=== PATIENT | male | born 1960 | race Caucasian/White ===

== ENCOUNTER 2016-08-17 20:19 | Observation (INO) ==
[2016-08-17] MEDS ORDERED: Aspirin 325 MG TABLET PO ONE (20:28)
--- NOTE | 2016-08-17 20:30 | Emergency Department Note ---
Disposition Clinical Impression: Chest pain, Alcohol abuse Disposition: Admitted As Inpatient Condition: Good Referrals: Marcelo Thomas MD [Primary Care Provider] - Time of Disposition: 21:26 Chest Pain HPI - General Chief Complaint: ED Chest Pain Stated Complaint: chest pain Time Seen by Provider: 08/17/16 20:22 Source: patient Mode of arrival: ambulatory Limitations: no limitations Vital Signs Reviewed: Yes Nursing Notes Reviewed: Yes - History of Present Illness HPI Narrative: This is a 56-year-old male who presents with 3-4 hours of chest pain on the right side that the aching in quality. Patient states the pain is nonradiating. Patient states he does have pain upon inspiration. Patient denies any nausea, abdominal pain, vomiting, or diarrhea. Patient has never had a heart cath or cardiac stents placed. Patient states he does have COPD but he does not wear oxygen at home. Pt complaint: chest pain Onset (ago): hour(s) (3-4) Duration: constant - Related Data Home Medications Medication Instructions Recorded Confirmed Alprazolam [Xanax 1 MG Tablet] 1 mg PO QID 08/17/16 08/17/16 Amlodipine Besylate 10 mg PO DAILY 08/17/16 08/17/16 Aspirin 81 mg PO DAILY 08/17/16 08/17/16 Citalopram Hydrobromide [Celexa] 40 mg PO DAILY 08/17/16 08/17/16 Gabapentin [Neurontin] 300 mg PO HS 08/17/16 08/17/16 OLANZapine [Zyprexa] 15 mg PO HS 08/17/16 08/17/16 Oxycodone HCl/Acetaminophen 1 each PO TID PRN 08/17/16 08/17/16 [Percocet 10-325 mg Tablet] Trazodone HCl 300 mg PO HS 08/17/16 08/17/16 Allergies Allergy/AdvReac Type Severity Reaction Status Date / Time No Known Allergies Allergy Verified 08/17/16 20:57 All systems ED: reviewed and negative except as stated. Constitutional: Denies: fever, chills, weakness, weight change Eyes: Denies: eye pain, eye discharge, vision change ENT ED: Denies: ear pain, throat pain, dental pain, hearing loss, epistaxis, congestion, dysphagia Cardiovascular: Reports: chest pain. Denies: palpitations, dyspnea on exertion , edema, syncope Respiratory: Reports: dyspnea. Denies: cough, wheezes, hemoptysis, stridor Gastrointestinal: Denies: abdominal pain, nausea, vomiting, diarrhea, constipation, hematemesis, melena, hematochezia Genitourinary: Denies: urgency, dysuria, frequency, hematuria Musculoskeletal: Denies: back pain, neck pain, arthralgia, myalgia Integumentary: Denies: rash, abrasion, lesions Neurological: Denies: headache, weakness, numbness, paresthesias, confusion, abnormal gait, vertigo Psychiatric: Denies: anxiety, depression, suicidal thoughts, homicidal thoughts , auditory hallucinations, visual hallucinations Endocrine: Denies: fatigue Hematological/Lymphatic: Denies: easy bleeding, easy bruising Allergic/Immunologic: Denies: facial swelling, urticaria Physical Exam - General Limitations: no limitations General appearance: alert, in no apparent distress - Head Head exam: atraumatic, normocephalic, normal inspection - Eye Eye exam: Present: normal appearance, PERRL, EOMI - ENT ENT exam: normal exam, normal oropharynx, mucous membranes moist - Expanded ENT Exam External ear exam: Present: normal external inspection Mouth exam: Present: normal external inspection Teeth exam: Present: normal inspection Throat exam: Present: normal inspection - Neck Neck exam: Present: normal inspection, full ROM, trachea midline - Chest Chest inspection: Present: normal inspection, symmetric chest wall rise - Respiratory Respiratory exam: Present: normal lung sounds bilaterally - Cardiovascular Cardiovascular exam: Present: regular rate, normal rhythm, normal heart sounds - Abdominal Exam Abdominal exam: Present: soft, Non-Tender. Absent: tenderness, distention, guarding, rebound, rigidity - Extremities Exam Extremities exam: Present: normal inspection, full ROM. Absent: tenderness, pedal edema - Expanded Upper Extremity Exam Shoulder exam: Present: normal inspection, full ROM Arm exam: Present: normal inspection, full ROM Elbow exam: Present: normal inspection, full ROM Forearm/Wrist exam: Present: normal inspection, full ROM Hand exam: Present: normal inspection, full ROM Vascular exam: Normal: capillary refill, radial pulse - Expanded Lower Extremity Exam Hip/Pelvis exam: Present: normal inspection, full ROM Upper leg exam: Present: normal inspection, full ROM Knee exam: Present: normal inspection, full ROM Lower leg exam: Present: normal inspection, full ROM Ankle exam: Present: normal inspection, full ROM Foot/toe exam: Present: normal inspection, full ROM Neurovascular/Tendon exam: Absent: motor deficit, sensory deficit, tendon deficit - Back Exam Back exam: Present: normal inspection, full ROM. Absent: tenderness - Neurological Exam Neurological exam: Present: alert, oriented X3 - Expanded Neurological Exam Patient oriented to: Present: person, place, time Coma Scale Eye Opening: Spontaneous Coma Scale Motor Response: Obeys Commands Coma Scale Verbal Response: Oriented Coma Scale Total: 15 - Psychiatric Psychiatric exam: Present: normal mood, flat affect - Skin Skin exam: Present: warm, dry, intact, normal color Course - Consultations Consultation #1: I spoke with Dr. Darrin bowden to admit. Time: 21:44 Vital Signs Temperature 97.7 F 08/17/16 20:47 Pulse Rate 72 08/17/16 20:47 Respiratory Rate 18 08/17/16 20:47 Blood Pressure 169/95 08/17/16 20:47 O2 Sat by Pulse Oximetry 72 L 08/17/16 20:47 Temperature 97.7 F 08/17/16 20:47 Pulse Rate 73 08/17/16 21:22 Respiratory Rate 17 08/17/16 21:22 Blood Pressure 161/105 08/17/16 21:22 O2 Sat by Pulse Oximetry 100 08/17/16 21:22 Oxygen Delivery Oxygen Delivery Room Air Chest Pain - Medical Records Medical records reviewed: Yes I reviewed the patient's medical records. - Lab Data Lab results reviewed: Yes I reviewed the patient's lab results. Result diagrams: 08/17/16 20:35 08/17/16 20:35 Lab Results 08/17/16 08/17/16 08/17/16 Range/Units 20:35 20:35 20:35 WBC 6.4 (4.3-11.1) K/mcL RBC 3.86 L (4.19-5.50) M/mcL Hgb 12.4 L (12.9-16.9) g/dL Hct 36.7 L (37.5-50.1) % MCV 95.1 (83.0-100.0) fL MCH 32.1 (28.0-33.3) pg MCHC 33.8 (31.6-35.5) g/dL RDW 11.9 (11.5-14.5) % Plt Count 274 (140-400) K/mcL MPV 9.4 (9.4-12.4) fL Immature Gran % 0.3 (0-4) % Seg Neutrophils % 80.2 % Lymphocytes % 9.6 % Monocytes % 6.6 % Eosinophils % 2.2 % Basophils % 1.1 % Neutrophils # 5.1 (1.6-8.9) K/mcL Lymphocytes # 0.6 (0.6-4.6) K/mcL Monocytes # 0.4 (0.0-1.3) K/mcL Eosinophils # 0.1 (0.0-0.6) K/mcL Basophils # 0.1 (0.0-0.2) K/mcL Immature Plt Fraction 3.8 (1.1-6.1) % PT 11.2 (9.4-12.1) Seconds INR 1.0 APTT 34.2 (26.0-36.0) Seconds Sodium 133 L (136-145) mEq/L Potassium 3.8 (3.5-4.5) mEq/L Chloride 93 L (98-109) mEq/L Carbon Dioxide 26 (19-29) mEq/L BUN 5 L (8-26) mg/dL Creatinine 0.71 L (0.72-1.25) mg/dL Est GFR ( Amer) > 60 (> 60) Est GFR (Non-Af Amer) > 60 (> 60) BUN/Creatinine Ratio 7 (6-26) Glucose 107 H (70-99) mg/dL Calculated Osmolality 274 L (280-300) Calcium 9.9 (8.6-10.8) mg/dL Troponin I (0-0.03) ng/mL B-Natriuretic Peptide (0-100) pg/mL 08/17/16 08/17/16 Range/Units 20:35 20:35 WBC (4.3-11.1) K/mcL RBC (4.19-5.50) M/mcL Hgb (12.9-16.9) g/dL Hct (37.5-50.1) % MCV (83.0-100.0) fL MCH (28.0-33.3) pg MCHC (31.6-35.5) g/dL RDW (11.5-14.5) % Plt Count (140-400) K/mcL MPV (9.4-12.4) fL Immature Gran % (0-4) % Seg Neutrophils % % Lymphocytes % % Monocytes % % Eosinophils % % Basophils % % Neutrophils # (1.6-8.9) K/mcL Lymphocytes # (0.6-4.6) K/mcL Monocytes # (0.0-1.3) K/mcL Eosinophils # (0.0-0.6) K/mcL Basophils # (0.0-0.2) K/mcL Immature Plt Fraction (1.1-6.1) % PT (9.4-12.1) Seconds INR APTT (26.0-36.0) Seconds Sodium (136-145) mEq/L Potassium (3.5-4.5) mEq/L Chloride (98-109) mEq/L Carbon Dioxide (19-29) mEq/L BUN (8-26) mg/dL Creatinine (0.72-1.25) mg/dL Est GFR ( Amer) (> 60) Est GFR (Non-Af Amer) (> 60) BUN/Creatinine Ratio (6-26) Glucose (70-99) mg/dL Calculated Osmolality (280-300) Calcium (8.6-10.8) mg/dL Troponin I 0.00 (0-0.03) ng/mL B-Natriuretic Peptide 30 (0-100) pg/mL - Radiology Data Radiology results reviewed: Yes I reviewed the patient's radiology results. - EKG Data EKG attestation: Yes I reviewed and interpreted this EKG. EKG shows normal: sinus rhythm Rate: normal Rhythm: NSR [place]/QRS: normal Interpretation: no acute changes, normal EKG
[2016-08-17 20:44] LABS: Basophils # 0.1 K/mcL (0.0-0.2); Basophils % 1.1 %; Eosinophils # 0.1 K/mcL (0.0-0.6); Eosinophils % 2.2 %; Hematocrit 36.7 % (37.5-50.1); Hemoglobin 12.4 g/dL (12.9-16.9); Immature Granulocytes % 0.3 % (0-4); Immature Platelets 3.8 % (1.1-6.1); Lymphocytes # 0.6 K/mcL (0.6-4.6); Lymphocytes % 9.6 %; Mean Corpuscular HGB Conc 33.8 g/dL (31.6-35.5); Mean Corpuscular Hemoglobin 32.1 pg (28.0-33.3); Mean Corpuscular Volume 95.1 fL (83.0-100.0); Mean Platelet Volume 9.4 fL (9.4-12.4); Monocytes # 0.4 K/mcL (0.0-1.3); Monocytes % 6.6 %; Neutrophils # 5.1 K/mcL (1.6-8.9); Platelet Count 274 K/mcL (140-400); Red Blood Count 3.86 M/mcL (4.19-5.50); Red Cell Distribution Width 11.9 % (11.5-14.5); Segmented Neutrophils % 80.2 %
[2016-08-17 20:50] LABS: Prothrombin Time 11.2 Seconds (9.4-12.1)
[2016-08-17 20:53] LABS: Activated Partial Thrombo Time 34.2 Seconds (26.0-36.0)
[2016-08-17 20:59] LABS: BUN/Creatinine Ratio 7 (6-26); Calcium 9.9 mg/dL (8.6-10.8); Carbon Dioxide 26 mEq/L (19-29); Chloride 93 mEq/L (98-109); Glucose 107 mg/dL (70-99); Osmolality,Calculated 274 (280-300); Potassium 3.8 mEq/L (3.5-4.5); Sodium 133 mEq/L (136-145); eGFR For African Americans > 60 (> 60); eGFR For Non-African Americans > 60 (> 60)
[2016-08-17 21:01] LABS: Blood Urea Nitrogen 5 mg/dL (8-26)
[2016-08-17] MEDS ORDERED: *HR* LORazepam 2 MG/ML VIAL IVP ONE (21:03)
[2016-08-18] MEDS ORDERED: Ondansetron 4 MG/2 ML VIAL IVP PRN (01:44)
[2016-08-18] MEDS ORDERED: *HR* Morphine 2 MG/ML SYRINGE IVP PRN (01:44)
[2016-08-18] MEDS ORDERED: Naloxone 0.4 MG/ML INJ IVP PRN (01:44)
[2016-08-18] MEDS ORDERED: Acetaminophen 325 MG TABLET PO PRN (01:44)
--- NOTE | 2016-08-18 01:49 | Internal Med History&Physical ---
Date of Encounter: 08/18/16 Time of Encounter: : Internal Medicine - H&P: HPI Chief complaint: upper abdominal pain, sudden-onset yesterday evening, now resolved. Admitted From: Emergency Dept Plans for Post Hospital Care: Home History of present illness: Mr. Mujica is a 56 year old male with medical history significant for controlled hypertension, on low dose aspirin (no health maintenance), no use of anticoagulants, COPD, presents with sudden-onset right mid abdominal pain. The was achy in nature, and intense necessitating his presentation in the ED. The pain lasted 3-4 hours and has now resolved. The pain was non-radiating. He had a feeling of heartburn but this also resolved before he called for relief from nurses. No associated fever, chills or rigors, no nausea, vomiting or diarrhea, no yellowing or eye or skin, no prior history of kidney stones. No falls or trauma, no gross hematuria, hematemesis, melena or hematochezia, no palpitation or diaphoresis. No personal or family history of ACS/CAD DVT or PE or bleeding disorder, platetlet or coagulation. No recent surgery, long-distance travel or recent. He is FULL CODE as per discussion, he nominates his daughter, Roxie Mujica as his NOK/POA ([phone]). 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 ROS: A 10-point ROS was performed, positives and relevant negative are detailed , system-symptoms not mentioned assumed negative unless otherwise stated. Vital Signs Temperature 97.7 F 08/17/16 20:47 Pulse Rate 72 08/17/16 20:47 Respiratory Rate 18 08/17/16 20:47 Blood Pressure 169/95 08/17/16 20:47 O2 Sat by Pulse Oximetry 72 L 08/17/16 20:47 Temperature 97.7 F 08/17/16 20:47 Pulse Rate 73 08/17/16 21:22 Respiratory Rate 17 08/17/16 21:22 Blood Pressure 161/105 08/17/16 21:22 O2 Sat by Pulse Oximetry 100 08/17/16 21:22 O/E: Non-obese, not in distress, HEENT: Not pale, anicteric, afebrile, acyanotic, no JVD Chest: CTAB Heart/CVS: RRR, HS1/2, no murmur Abdomen: soft, non-tender, no masses. : No flank tenderness, no CVA tenderness, no suprapubic tenderness. Urine is clear, no evidence of gross hematuria. [employer]: AAO x 3, no gross focal neurological decifits, PERRL/EOMI Skin: No active skin lesion, no bruises or purpura Extremities: No pedal edema, normal pedal pulses, no calf tenderness Lab Results 08/17/16 08/17/16 08/17/16 Range/Units 20:35 20:35 20:35 WBC 6.4 (4.3-11.1) K/mcL RBC 3.86 L (4.19-5.50) M/mcL Hgb 12.4 L (12.9-16.9) g/dL Hct 36.7 L (37.5-50.1) % MCV 95.1 (83.0-100.0) fL MCH 32.1 (28.0-33.3) pg MCHC 33.8 (31.6-35.5) g/dL RDW 11.9 (11.5-14.5) % Plt Count 274 (140-400) K/mcL MPV 9.4 (9.4-12.4) fL Immature Gran % 0.3 (0-4) % Seg Neutrophils % 80.2 % Lymphocytes % 9.6 % Monocytes % 6.6 % Eosinophils % 2.2 % Basophils % 1.1 % Neutrophils # 5.1 (1.6-8.9) K/mcL Lymphocytes # 0.6 (0.6-4.6) K/mcL Monocytes # 0.4 (0.0-1.3) K/mcL Eosinophils # 0.1 (0.0-0.6) K/mcL Basophils # 0.1 (0.0-0.2) K/mcL Immature Plt Fraction 3.8 (1.1-6.1) % PT 11.2 (9.4-12.1) Seconds INR 1.0 APTT 34.2 (26.0-36.0) Seconds Sodium 133 L (136-145) mEq/L Potassium 3.8 (3.5-4.5) mEq/L Chloride 93 L (98-109) mEq/L Carbon Dioxide 26 (19-29) mEq/L BUN 5 L (8-26) mg/dL Creatinine 0.71 L (0.72-1.25) mg/dL Est GFR ( Amer) > 60 (> 60) Est GFR (Non-Af Amer) > 60 (> 60) BUN/Creatinine Ratio 7 (6-26) Glucose 107 H (70-99) mg/dL Calculated Osmolality 274 L (280-300) Calcium 9.9 (8.6-10.8) mg/dL Troponin I (0-0.03) ng/mL B-Natriuretic Peptide (0-100) pg/mL 08/17/16 08/17/16 Range/Units 20:35 20:35 WBC (4.3-11.1) K/mcL RBC (4.19-5.50) M/mcL Hgb (12.9-16.9) g/dL Hct (37.5-50.1) % MCV (83.0-100.0) fL MCH (28.0-33.3) pg MCHC (31.6-35.5) g/dL RDW (11.5-14.5) % Plt Count (140-400) K/mcL MPV (9.4-12.4) fL Immature Gran % (0-4) % Seg Neutrophils % % Lymphocytes % % Monocytes % % Eosinophils % % Basophils % % Neutrophils # (1.6-8.9) K/mcL Lymphocytes # (0.6-4.6) K/mcL Monocytes # (0.0-1.3) K/mcL Eosinophils # (0.0-0.6) K/mcL Basophils # (0.0-0.2) K/mcL Immature Plt Fraction (1.1-6.1) % PT (9.4-12.1) Seconds INR APTT (26.0-36.0) Seconds Sodium (136-145) mEq/L Potassium (3.5-4.5) mEq/L Chloride (98-109) mEq/L Carbon Dioxide (19-29) mEq/L BUN (8-26) mg/dL Creatinine (0.72-1.25) mg/dL Est GFR ( Amer) (> 60) Est GFR (Non-Af Amer) (> 60) BUN/Creatinine Ratio (6-26) Glucose (70-99) mg/dL Calculated Osmolality (280-300) Calcium (8.6-10.8) mg/dL Troponin I 0.00 (0-0.03) ng/mL B-Natriuretic Peptide 30 (0-100) pg/mL CXR: No acute cardiopulmonary process Chest CT: emphysema,right pulmonary nodule with hilar lymphadenomapathy, no pulmonary embolism, limited evidence of retroperitoneal hematoma EKG: NSR, normal intervals, normal axis, no definitive evidence of ischemia/ infarction imp Smalll spontaneous retroperitoneal hematoma Chronic morbidities HTN Pulmonary nodule COPD-emphysema, stable Some form of psychosis (on Zyprexia) Alcohol abuse, minimal risk for withdrawal. PLAN Admit Obtain CT abdomen. Conservative care. Patient currently has no pain. DC Aspirin If HH remain stable after q8h x 2, consider discharging home Optimal analgesia, prn Continue other medications for chronic morbidities I anticipate discharge home later today Follow-up with shift supervisor rn in the out-patient setting, please set up appointment for evaluation of pulmonary nodule. No indication for GI/DVT prophylaxis I discussed my findings and assessment with the patient, he verbalized understanding and is agreeable to admission. He is admitted to observation only out of caution. Urine is clear, no gross hematuria, hemoglobin and vital signs remain stable. Past Med Surg Social Fam HX - Past Medical History Medical history: no medical history Psychiatric history: anxiety, depression - Social History Smoking Status: Former smoker Smokeless Tobacco Status: No Alcohol use: heavy Drug use: none - Family History Mother History Unknown: Yes Father Hx Family Cancer: Yes (skin cancer) Hx Family Endocrine Disorder: Yes (diabetic) Internal Medicine - H&P: Meds Alprazolam [Xanax 1 MG Tablet] 1 mg PO QID 08/17/16 [History] Amlodipine Besylate 10 mg PO DAILY 08/17/16 [History] Aspirin 81 mg PO DAILY 08/17/16 [History] Citalopram Hydrobromide [Celexa] 40 mg PO DAILY 08/17/16 [History] Gabapentin [Neurontin] 300 mg PO HS 08/17/16 [History] OLANZapine [Zyprexa] 15 mg PO HS 08/17/16 [History] Oxycodone HCl/Acetaminophen [Percocet 10-325 mg Tablet] 1 each PO TID PRN [History] Trazodone HCl 300 mg PO HS 08/17/16 [History] Allergies No Known Allergies Allergy (Verified 08/17/16 20:57) All Systems PM: A 10-system review of systems was performed and is negative for pertinent findings except as documented above in the HPI. - Constitutional Vitals: Temp Pulse Resp BP Pulse Ox 98.3 F 82 16 159/81 94 L 08/17/16 23:29 08/17/16 23:29 08/17/16 23:29 08/17/16 23:29 08/17/16 23:29 Internal Med - H&P Results - Labs CBC & Chem 7: 08/17/16 20:35 08/17/16 20:35 - Impressions ITS Impressions Chest CTA 08/17/16 22:23 IMPRESSION: No CT evidence of pulmonary embolism. Limited images of the upper abdomen show at least a moderate amount of right retroperitoneal acute hemorrhage ; the upper pole the right kidney is abnormal, not well characterized. Dedicated CT of the abdomen and pelvis is recommended to further evaluate. Moderate emphysema. Right hilar adenopathy is noted as well as a 1.1 cm juxtapleural right apical noncalcified nodule. Comparison with prior studies would be helpful if available. Otherwise, PET-CT is recommended to further evaluate. The findings were sent to the Radiology Results Communication Center at 12:00 am on 08/18/2016to be communicated to a licensed caregiver. RECOMMENDATIONS: Fleischner Society guidelines for follow-up and management of pulmonary nodules: Nodule size greater than 8 mm In low-risk and high-risk patients follow-up CT at around 3, 9, and 24 months, contrast-enhanced CT, PET, and/or biopsy. Low risk patients include individuals with minimal or absent history of smoking and other known risk factors. High risk patients include individuals with a history of smoking or other known risk factors. Radiology 2005; [id number] D/ / Francoise Franz Cha, MD / Francoise Franz Cha, MD Interpreting Provider: Francoise Franz Cha, MD - VTE Reasons for not Prescribing Prophylaxis: Treatment not Indicated - Low risk for VTE
[2016-08-18 05:40] LABS: Hematocrit 32.7 % (37.5-50.1); Hemoglobin 11.5 g/dL (12.9-16.9)
[2016-08-18] MEDS: ALPRAZolam 1 MG TABLET PO SCH ×4 (09:01→21:15)
[2016-08-18] MEDS: *HR* OxyCODONE/APAP 10/325 TABLET PO PRN ×3 (09:02→21:16)
[2016-08-18] MEDS: amLODIPine 5 MG TABLET PO SCH (09:02)
--- NOTE | 2016-08-18 11:45 | Electrocardiograph Report ---
[facility] Test Date: 2016-08-17 Pat Name: Dario Mujica Department: 103 Room: 3B47 Gender: M Forester Aide: EVA : 1960 Requested By: Valorie Urbina Order Number: [id number] Reading MD: Kody Peterson MD Measurements Intervals [place] Rate: 67 P: 63 OR: 147 QRS: 56 QRSD: 89 T: 61 QT: 391 QTc: 407 Interpretive Statements SINUS RHYTHM WITH SINUS ARRHYTHMIA Electronically Signed On 08-18-16 11:44:11 EST by Kody Peterson MD
[2016-08-18 13:17] LABS: Hematocrit 32.7 % (37.5-50.1); Hemoglobin 11.2 g/dL (12.9-16.9)
[2016-08-18] MEDS: Gabapentin 300 MG CAPSULE PO SCH (21:14)
[2016-08-18] MEDS: traZODone 50 MG TABLET PO SCH (21:15)
[2016-08-18] MEDS: OLANZapine 5 MG TAB.RAPDIS PO SCH (21:16)
[2016-08-19] MEDS: amLODIPine 5 MG TABLET PO SCH (07:34)
[2016-08-19] MEDS: ALPRAZolam 1 MG TABLET PO SCH ×4 (07:34→22:20)
[2016-08-19] MEDS: *HR* OxyCODONE/APAP 10/325 TABLET PO PRN ×3 (09:09→22:20)
--- NOTE | 2016-08-19 18:24 | Oncology Inp Consult Note ---
Date of Encounter: 08/19/16 Time of Encounter: 17:00 Assessment and Plan (1) Adrenal mass, right Status: Acute Assessment and plan: Patient enlarged right adrenal gland CT findings suggestive of hemorrhage, underlying mass cannot be excluded also with right apical lung nodule and right hilar adenopathy measuring 1.1 x 1.5 cm in size, benign and malignant etiologies to be considered and differentiated. He is smoker quit a year ago. Patient's pain is minimal hemoglobin hematocrit was stabilizing labs in the morning look stable patient will be discharged home for follow-up in oncology clinic with lab works and possibly outpatient PET scan for evaluation lung nodule and possible adrenal mass. Review imaging in tumor conference Plan of care discussed in detail with patient and his daughter who stated understanding. Outpatient oncology f/u with me in a wk or so. - Data of Consult Requesting Physician: Verena Tripp Primary Care Provider: Marcelo Thomas MD - Consult Narrative Reason for consult: adrenal mass/hge History of present illness: Mr. Mujica is a 56 year old male with medical history significant for hypertension, COPD, psych disorder, hospitalized with right-sided chest discomfort who has undergone further imaging studies. A CT angiogram that was negative for pulmonary embolism patient was noted to have a 1.1 cm right apical noncalcified lung nodule and right hilar borderline adenopathy. Measuring 1.[address] scan of the abdomen without contrast shows enlargement of the right adrenal gland up to 6.2 x [address] findings consistent with hemorrhage. Solid mass in the adrenal gland could not be excluded. oncology is consulted with abnormal CT scan findings. Patient reports right-sided chest pain that was present 2-3 days prior to hospitalization. He had a trauma that he fell on the radioactive weeks ago on the right rib cage. He has had some weight loss as gradual over 2 years.. He denies any shortness of breath he quit smoking ago. He had a colonoscopy and polypectomy in 2015. Past Med Surg Social Fam HX - Past Medical History Medical history: no medical history Psychiatric history: anxiety, depression - Social History Smoking Status: Former smoker Smokeless Tobacco Status: No Alcohol use: heavy Drug use: none - Family History Mother History Unknown: Yes Father Hx Family Cancer: Yes (skin cancer) Hx Family Endocrine Disorder: Yes (diabetic) Medications and Allergies Alprazolam [Xanax 1 MG Tablet] 1 mg PO QID 08/17/16 [History] Amlodipine Besylate 10 mg PO DAILY 08/17/16 [History] Aspirin 81 mg PO DAILY 08/17/16 [History] Citalopram Hydrobromide [Celexa] 40 mg PO DAILY 08/17/16 [History] Gabapentin [Neurontin] 300 mg PO HS 08/17/16 [History] OLANZapine [Zyprexa] 15 mg PO HS 08/17/16 [History] Oxycodone HCl/Acetaminophen [Percocet 10-325 mg Tablet] 1 each PO TID PRN [History] Trazodone HCl 300 mg PO HS 08/17/16 [History] Allergies No Known Allergies Allergy (Verified 08/17/16 20:57) Review of systems: as above Oncology - Exam - Constitutional Vitals: Temp Pulse Resp BP Pulse Ox 99.2 F 81 17 107/69 93 L 08/19/16 15:19 08/19/16 15:19 08/19/16 15:19 08/19/16 15:19 08/19/16 15:19 General appearance: average body habitus, no acute distress, thin - Head Head exam: Present: atraumatic, normal inspection - Eye Eye exam: Present: conjuntiva pink, sclera anicteric - ENT ENT exam: Present: mucous membranes dry, mucous membranes moist - Neck Neck exam: Present: full ROM - Respiratory Respiratory exam: Present: CTAB - Cardiovascular Cardiovascular exam: Present: +S1, +S2 - GI/Abdominal GI/Abdominal exam: Present: normal bowel sounds, soft Additional comments: non tender, no masses - Extremities Exam Extremities exam: Present: normal inspection - Neurological Exam Neurological exam: Present: alert, CN II-XII intact, oriented X3 - Psychiatric Psychiatric exam: Present: normal affect - Skin Skin exam: Present: normal color Oncology - Results - Imaging and Cardiology CT scan - abdomen Status: image reviewed by me CT scan - chest Status: image reviewed by me Consult Discharge Plan - Plan Referrals: Marcelo Thomas MD [Primary Care Provider] - 08/24/16 2:00 pm
--- NOTE | 2016-08-19 19:02 | Internal Med Progress Note ---
Date of Encounter: 08/19/16 Time of Encounter: 17:30 - Assessment and plan (1) Adrenal mass, right Current Visit: Yes Status: Acute (2) Alcohol abuse Current Visit: Yes Status: Acute Assessment and plan: repeat CT abdomen does not show worsening bleed. continue to monitor h/h oncology consulted for recommendations. anticipate discharge in the AM if hemoglobin continues to remain stable. - Subjective Interval history: abdominal pain resolved - Constitutional Vitals: Temp Pulse Resp BP Pulse Ox 99.2 F 81 17 107/69 93 L 08/19/16 15:19 08/19/16 15:19 08/19/16 15:19 08/19/16 15:19 08/19/16 15:19 General appearance: Present: A&O X 3, no acute distress - Head Head exam: Present: atraumatic, normocephalic - Eye Eye exam: Present: PERRL, conjuntiva pink, sclera anicteric Pupils: Present: PERRL - Neck Neck exam general surgery: Present: supple, trachea midline. Absent: lymphadenopathy - Respiratory Respiratory exam: Present: CTAB. Absent: accessory muscle use, rales, rhonchi, wheezes - Cardiovascular Cardiovascular exam: Present: RRR, +S1, +S2. Absent: diastolic murmur, gallop, rubs, systolic murmur - GI/Abdominal GI/Abdominal exam: Present: normal bowel sounds, soft, no peritoneal signs. Absent: distended, tenderness - Extremities Exam Extremities exam: Present: warm, radial pulses palpable and symetrical. Absent : calf tenderness, cyanotic, pedal edema - Neurological Exam Neurological exam: Present: CN II-XII intact, oriented X3, no focal deficits. Absent: pronater drift, facial droop, speech deficit - Skin Skin exam: Present: dry, intact Internal Medicine: Result - Labs CBC & Chem 7: 08/18/16 12:08 08/17/16 20:35 - ABG Interpretation ABG results: PT/INR, D-dimer PT 11.2 Seconds (9.4-12.1) 08/17/16 20:35 D-Dimer 1246 ng/mLFEU (0-500) H 08/17/16 20:35 - Impressions Impressions Abdomen/Pelvis CT 08/19/16 12:28 IMPRESSION: 1. Stable appearance since 02/15/2017 of a right adrenal mass with associated retroperitoneal hemorrhage. Without IV contrast, it is unclear which portion of the right adrenal mass represents evolving blood products versus solid mass. Differential considerations include both benign and malignant etiologies. 2. Trace right effusion. 3. Mild circumferential wall thickening of the bladder, nonspecific. D/ / 08/19/2016 13:58:57 Jihan Myers MD / Kanwal Michelle Interpreting Provider: Jihan Myers MD - VTE Reasons for not Prescribing Prophylaxis: Treatment not Indicated - Low risk for VTE Consult Discharge Plan - Plan Referrals: Marcelo Thomas MD [Primary Care Provider] - 08/24/16 2:00 pm
[2016-08-19] MEDS: OLANZapine 5 MG TAB.RAPDIS PO SCH (22:20)
[2016-08-19] MEDS: traZODone 50 MG TABLET PO SCH (22:20)
[2016-08-19] MEDS: Gabapentin 300 MG CAPSULE PO SCH (22:20)
[2016-08-20 04:53] LABS: Basophils % 0.9 %; Eosinophils # 0.2 K/mcL (0.0-0.6); Eosinophils % 4.2 %; Hematocrit 31.3 % (37.5-50.1); Hemoglobin 10.6 g/dL (12.9-16.9); Immature Granulocytes % 0.4 % (0-4); Lymphocytes # 0.9 K/mcL (0.6-4.6); Lymphocytes % 20.3 %; Mean Corpuscular HGB Conc 33.9 g/dL (31.6-35.5); Mean Corpuscular Hemoglobin 32.2 pg (28.0-33.3); Mean Corpuscular Volume 95.1 fL (83.0-100.0); Mean Platelet Volume 9.6 fL (9.4-12.4); Monocytes # 0.8 K/mcL (0.0-1.3); Monocytes % 17.4 %; Neutrophils # 2.6 K/mcL (1.6-8.9); Platelet Count 218 K/mcL (140-400); Red Blood Count 3.29 M/mcL (4.19-5.50); Red Cell Distribution Width 11.9 % (11.5-14.5); Segmented Neutrophils % 56.8 %
[2016-08-20 05:07] LABS: BUN/Creatinine Ratio 7 (6-26); Carbon Dioxide 25 mEq/L (19-29); Chloride 100 mEq/L (98-109); Glucose 97 mg/dL (70-99); Osmolality,Calculated 275 (280-300); Potassium 4.1 mEq/L (3.5-4.5); Sodium 134 mEq/L (136-145); eGFR For African Americans > 60 (> 60); eGFR For Non-African Americans > 60 (> 60)
[2016-08-20 05:08] LABS: Blood Urea Nitrogen 5 mg/dL (8-26)
[2016-08-20 07:47] VITALS: BP 106/67
[2016-08-20] MEDS: ALPRAZolam 1 MG TABLET PO SCH (07:48)
[2016-08-20] MEDS: amLODIPine 5 MG TABLET PO SCH (07:49)
--- NOTE | 2016-08-20 08:51 | Discharge Summary ---
Date of Encounter: 08/20/16 Time of Encounter: 08:34 - Discharge Diagnosis (1) Adrenal hemorrhage Priority: Primary Status: Acute (2) Lung nodule < 6cm on CT Priority: Primary Status: Acute (3) Adrenal mass, right Priority: Primary Status: Acute (4) Alcohol abuse Priority: Secondary Status: Acute - Discharge Medications Home Medications: Alprazolam [Xanax 1 MG Tablet] 1 mg PO QID 08/17/16 [History] Amlodipine Besylate 10 mg PO DAILY 08/17/16 [History] Aspirin 81 mg PO DAILY 08/17/16 [History] Citalopram Hydrobromide [Celexa] 40 mg PO DAILY 08/17/16 [History] Gabapentin [Neurontin] 300 mg PO HS 08/17/16 [History] OLANZapine [Zyprexa] 15 mg PO HS 08/17/16 [History] Oxycodone HCl/Acetaminophen [Percocet 10-325 mg Tablet] 1 each PO TID PRN [History] Trazodone HCl 300 mg PO HS 08/17/16 [History] Allergies/Adverse Reactions: Allergies No Known Allergies Allergy (Verified 08/17/16 20:57) Procedures/tests Complete & Pending: Procedures Performed prior 72 hours Category Date Time Status CT abd pelvis wo no iv no oral [CT] Routine Cat Scan 08/18/16 08:[address] abd pelvis wo no iv no oral [CT] Routine Cat Scan 08/19/16 12:28 Draft CTA chest [CT angio chest] [CT] Stat Cat Scan 08/17/16 22:23 Completed Date of admission: 08/17/16 21:47 Primary care physician: Marcelo Thomas MD Consults: 08/19/16 16:44 Consult to Oncology [CONS] Routine Consulting Provider: [facility] Reason for Consult: Adrenal mass with hemorrhage, 1.1cm lung nodule. Call Completed: Yes - Patient Status Disposition: Home, Self-Care Condition: Good - Discharge Instructions Follow Up With: Marcelo Thomas MD [Primary Care Provider] - 08/24/16 2:00 pm Forms: ED Satisfaction Letter - Diet and Activity Activity: increase activity as tolerated Diet: advance to your usual diet Hospital course: Mr. Mujica is a 56 year old male who presented with right flank pain and was found to have a right adrenal mass with retroperitoneal hemorrhage, patient has been asymptomatic and requesting to go home. A 1.1cm lung nodule was also found on Chest CTA. His hgb was monitored with only a mild drop. He was seen by oncology who recommended outpatient followup for PET scan. There were no signs of adrenal insufficiency. Pt denied any trauma. Pt will follow up with his PCP on 08/24/16. He will need to have repeat cbc. Pt has been informed to return to the hospital or call 911 if he starts to feel sick, feels dizzy, develops cheset pain or worsened abdominal pain. - Time Spent with Patient Total time spent providing and/or coordinating discharge services: - Constitutional Vitals: Temp Pulse Resp BP Pulse Ox 97.4 F L 75 15 106/67 96 08/20/16 06:48 08/20/16 06:48 08/20/16 06:48 08/20/16 07:46 08/20/16 06:48 General appearance: Present: A&O X 3, no acute distress - Head Head exam: Present: atraumatic, normocephalic - Eye Eye exam: Present: PERRL, conjuntiva pink, sclera anicteric Pupils: Present: PERRL - Neck Neck exam general surgery: Present: supple, trachea midline. Absent: lymphadenopathy - Respiratory Respiratory exam: Present: CTAB. Absent: accessory muscle use, rales, rhonchi, wheezes - Cardiovascular Cardiovascular exam: Present: RRR, +S1, +S2. Absent: diastolic murmur, gallop, rubs, systolic murmur - GI/Abdominal GI/Abdominal exam: Present: normal bowel sounds, soft, no peritoneal signs. Absent: distended, tenderness - Extremities Exam Extremities exam: Present: warm, radial pulses palpable and symetrical. Absent : calf tenderness, cyanotic, pedal edema - Neurological Exam Neurological exam: Present: CN II-XII intact, oriented X3, no focal deficits. Absent: pronater drift, facial droop, speech deficit - Skin Skin exam: Present: dry, intact - VTE Reasons for not Prescribing Prophylaxis: Treatment not Indicated - Low risk for VTE
== END 2016-08-20 09:36 | disposition home or self-care (01) ==
LOC: 3BNU 20:19 → EMEROO 20:19 → SUATTDRO 21:47 → 3BNU 22:30
PROVIDERS: ADMIT Internal Medicine; ATTEND Family Medicine

== ENCOUNTER 2018-02-14 13:03 | Observation (INO) ==
[2018-02-14 13:35] LABS: Basophils % 0.1 %; Hematocrit 32.7 % (37.5-50.1); Hemoglobin 10.4 g/dL (12.9-16.9); Immature Granulocytes % 0.5 % (0-4); Lymphocytes # 0.6 K/mcL (0.6-4.6); Lymphocytes % 3.1 %; Mean Corpuscular HGB Conc 31.8 g/dL (31.6-35.5); Mean Corpuscular Hemoglobin 25.7 pg (28.0-33.3); Mean Corpuscular Volume 80.7 fL (83.0-100.0); Mean Platelet Volume 8.9 fL (9.4-12.4); Monocytes # 0.6 K/mcL (0.0-1.3); Monocytes % 2.9 %; Neutrophils # 18.6 K/mcL (1.6-8.9); Platelet Count 320 K/mcL (140-400); Red Blood Count 4.05 M/mcL (4.19-5.50); Red Cell Distribution Width 16.7 % (11.5-14.5); Segmented Neutrophils % 93.4 %
[2018-02-14 14:10] LABS: BUN/Creatinine Ratio 12 (6-26); Blood Urea Nitrogen 10 mg/dL (6-20); Calcium 9.2 mg/dL (8.6-10.3); Carbon Dioxide 29 mEq/L (23-29); Chloride 96 mEq/L (98-107); Glucose 132 mg/dL (70-105); Osmolality,Calculated 279 (280-300); Potassium 2.7 mEq/L (3.5-5.1); Sodium 134 mEq/L (136-145); eGFR For Non-African Americans > 60 (> 60)
[2018-02-14 14:15] LABS: Troponin I < 0.03 ng/mL (< 0.04)
[2018-02-14] MEDS ORDERED: Potassium Chloride 40 MEQ, Lidocaine 1% 2 ML in D5% in Water 500 ML IVPB ONE (15:13)
[2018-02-14] MEDS ORDERED: Piperacillin/Tazobactam 3.375 GM in 0.9 % Sodium Chloride Mini Bag 100 ML IVPB ONE (15:14)
--- NOTE | 2018-02-14 15:35 | Emergency Department Note ---
Disposition Clinical Impression: Hypokalemia, Pneumonia Lung cancer Qualifiers: Laterality: unspecified laterality Lung location: unspecified part of lung Qualified Code(s): C34.90 - Malignant neoplasm of unspecified part of unspecified bronchus or lung Disposition: Admitted As Inpatient Condition: Fair Recheck wound or abnormal lab - General Chief Complaint: ED Recheck/Abnormal Lab/Rx Stated Complaint: abnormal labs, from [facility] Time Seen by Provider: 02/14/18 15:10 Source: patient, family Mode of arrival: ambulatory Limitations: no limitations Nursing Notes Reviewed: Yes Vital Signs Reviewed: Yes - History of Present Illness HPI Narrative: 58-year-old male with a history of lung cancer presents for evaluation of abnormal labs. Patient states that he had routine labs obtained earlier at the [facility] was noted have a low potassium. States that the patient has been having chronic diarrhea that is nonbloody over the past 3 months. States that the etiology is unknown. Patient denies any abdominal pain. Patient does note some chest pain right-sided yesterday that has since resolved. Denies any fevers. Denies any dyspnea. Patient states that he was on Flagyl and the past however denies any recent antibiotics use. Denies any vomiting. Denies any history of heart attacks or strokes. Denies history of congestive heart failure or diuretics. - Related Data Home Medications Medication Instructions Recorded Confirmed ALPRAZolam [Xanax 1 MG Tablet] 1 mg PO QID 08/17/16 02/14/18 Amlodipine Besylate 10 mg PO DAILY 08/17/16 02/14/18 Aspirin 81 mg PO DAILY 08/17/16 02/14/18 Citalopram Hydrobromide [Celexa] 40 mg PO DAILY 08/17/16 02/14/18 Gabapentin [Neurontin] 600 mg PO HS 08/17/16 02/14/18 OLANZapine [Zyprexa] 30 mg PO HS 08/17/16 02/14/18 Oxycodone HCl/Acetaminophen 1 tab PO TID PRN 08/17/16 02/14/18 [Percocet 10-325 mg Tablet] Oxybutynin Chloride [Ditropan Xl] 10 mg PO HS 02/14/18 02/14/18 Trazodone HCl 200 mg PO HS PRN 02/14/18 02/14/18 Previous Rx's Medication Instructions Recorded Omeprazole [PriLOSEC] 40 mg PO DAILY #30 capsule. 08/29/17 Loperamide [Imodium] 2 mg PO PRN PRN #90 capsule 12/28/17 DiphenhydraMINE [Benadryl] 25 mg PO Q8HR PRN #90 capsule 01/23/18 MethylPREDNISolone [Medrol] 32 mg PO DAILY #14 tablet 02/14/18 metroNIDAZOLE [Flagyl] 500 mg PO TID #30 tablet 02/14/18 Allergies Allergy/AdvReac Type Severity Reaction Status Date / Time No Known Allergies Allergy Verified 02/14/18 13:12 All systems ED: reviewed and negative except as stated. Constitutional: Denies: fever Cardiovascular: Reports: chest pain Respiratory: Denies: cough, dyspnea Gastrointestinal: Reports: diarrhea. Denies: abdominal pain, nausea, vomiting Past Medical History - Past Medical History Source: patient Medical history: Reports: cancer, COPD, hypertension, other Surgical history: Reports: cholecystectomy, orthopedic, other, other Psychiatric history: Reports: anxiety, depression - Social History Smoking Status: Former smoker Smokeless Tobacco Status: No Alcohol use: Reports: none Drug use: Reports: none Physical Exam - General Limitations: no limitations General appearance: alert, in no apparent distress - Head Head exam: atraumatic, normocephalic, normal inspection - Eye Eye exam: Present: normal appearance - ENT ENT exam: normal exam, mucous membranes moist - Neck Neck exam: Present: normal inspection - Chest Chest inspection: Present: normal inspection - Respiratory Respiratory exam: Present: other (Diffusely diminished throughout). Absent: respiratory distress - Cardiovascular Cardiovascular exam: Present: regular rate, normal rhythm. Absent: systolic murmur - Abdominal Exam Abdominal exam: Present: soft, Non-Tender. Absent: normal bowel sounds - Extremities Exam Extremities exam: Present: normal inspection. Absent: pedal edema - Expanded Lower Extremity Exam Neurovascular/Tendon exam: Present: normal capillary refill - Back Exam Back exam: Present: normal inspection - Neurological Exam Neurological exam: Present: alert, oriented X3 - Skin Skin exam: Present: warm, dry, intact, normal color Course Course Narrative: Patient seen and examined. Patient appears in no acute distress. Patient does have abnormal labs with a potassium level of 2.7. Likely GI losses from his said chronic diarrhea. Patient will get basic labs including magnesium. Patient watch lites and we repleted. Patient's chest x-ray ordered from triage does show evidence of pneumonia. Patient was started on broad-spectrum antibiotics and admission to the hospital to ensure symptom resolution. - Reevaluation(s) Reevaluation #1: Patient seen and examined. Patient's resting comfortably. Time: 16:10 Reevaluation #2: Patient seen and examined. Patient is agreeable with plan of care. Patient repeat abdominal exam is unremarkable. Patient will be admitted to the hospital service given the likely abnormalities. Time: 16:22 Vital Signs Temperature 98.1 F 02/14/18 13:10 Pulse Rate 86 02/14/18 13:10 Respiratory Rate 18 02/14/18 13:10 Blood Pressure 114/71 02/14/18 13:10 O2 Sat by Pulse Oximetry 96 02/14/18 13:10 Temperature 97.7 F 02/14/18 19:26 Pulse Rate 88 02/14/18 19:26 Respiratory Rate 16 02/14/18 19:26 Blood Pressure 117/65 02/14/18 21:47 O2 Sat by Pulse Oximetry 96 02/14/18 19:26 Oxygen Delivery Oxygen Delivery Room Air Recheck wound or abnormal lab - MDM Narrative Medical decision making narrative: Patient seen and examined. Patient's resting comfortably. Patient presented for abnormal labs. Patient does have a history of non-small cell lung cancer. Patient is on immunotherapy at the cancer center. Patient's last immunotherapy was 4 weeks ago and was held today due to his diarrhea and lab abnormalities. Patient's also on chronic steroids. Patient was noted to be hypokalemic with a potassium of 2.6 with outpatient labs and 2.7 on repeat here in the ED. Patient was repleted with oral as well as IV potassium. Patient does have good kidney function. Patient's potassium losses likely secondary to GI losses and diarrhea. Patient did get a chest x-ray which was ordered from triage which had concerning symptoms of pneumonia patient has a history of right-sided chest pain. Given this improved procalcitonin level was ordered and the patient was started on broad-spectrum antibiotics. Patient will likely be able to de- escalate antibiotics once shows clinical improvement. At this time is difficult to say whether that is an infectious or inflammatory or malignant etiologies on chest x-ray. Patient will be admitted to the hospital service to continue therapy. Patient's white count likely secondary to demyelination and steroid use. Patient does not appear septic however given the patient's immunosuppression with steroids blood cultures and lactate were obtained. Patient's abdomen is soft and nontender and CT scan the abdomen and pelvis was not obtained. Patient was C. difficile negative back in November of this year. - Lab Data Lab results reviewed: Yes I reviewed the patient's lab results. Result diagrams: 02/14/18 13:22 02/14/18 19:29 Lab Results 02/14/18 02/14/18 02/14/18 Range/Units 13:22 13:22 15:49 WBC 19.9 H (4.3-11.1) K/mcL RBC 4.05 L (4.19-5.50) M/mcL Hgb 10.4 L (12.9-16.9) g/dL Hct 32.7 L (37.5-50.1) % MCV 80.7 L (83.0-100.0) fL MCH 25.7 L (28.0-33.3) pg MCHC 31.8 (31.6-35.5) g/dL RDW 16.7 H (11.5-14.5) % Plt Count 320 (140-400) K/mcL MPV 8.9 L (9.4-12.4) fL Immature Gran % 0.5 (0-4) % Seg Neutrophils % 93.4 % Lymphocytes % 3.1 % Monocytes % 2.9 % Eosinophils % 0.0 % Basophils % 0.1 % Neutrophils # 18.6 H (1.6-8.9) K/mcL Lymphocytes # 0.6 (0.6-4.6) K/mcL Monocytes # 0.6 (0.0-1.3) K/mcL Eosinophils # 0.0 (0.0-0.6) K/mcL Basophils # 0.0 (0.0-0.2) K/mcL Sodium 134 L (136-145) mEq/L Potassium 2.7 L (3.5-5.1) mEq/L Chloride 96 L (98-107) mEq/L Carbon Dioxide 29 (23-29) mEq/L BUN 10 (6-20) mg/dL Creatinine 0.82 (0.70-1.30) mg/dL Est GFR ( Amer) > 60 (> 60) Est GFR (Non-Af Amer) > 60 (> 60) BUN/Creatinine Ratio 12 (6-26) Glucose 132 H (70-105) mg/dL Calculated Osmolality 279 L (280-300) Lactic Acid 1.6 (0.5-2.2) mmol/L Calcium 9.2 (8.6-10.3) mg/dL Magnesium 2.0 (1.6-2.6) mg/dL Troponin I < 0.03 (< 0.04) ng/mL - Radiology Data Radiology results reviewed: Yes I reviewed the patient's radiology results. Chest X-Ray 02/14/18 13:25 IMPRESSION: Patchy infiltrate within the right upper and right lower lobe concerning for possible pneumonia. D/ / 02/14/2018 14:16:58 Luke Marsh MD / Kanwal Michelle Interpreting Provider: Luke Marsh MD - EKG Data EKG attestation: Yes I reviewed and interpreted this EKG. EKG shows normal: sinus rhythm Rate: normal Rhythm: NSR [place]/QRS: normal T wave inversions noted in: aVR Interpretation: no acute changes, nonspecific ST-T wave changes S.B.A.R. - S.B.A.R. Situation: Demographics Background: Presenting Complaint Assessment: Vital Signs, Course and respsone to treatment, Patient/Family Expectation, Pertinant Lab Results Recommendation: Barrier(s) to disposition, Recommendation based on pending studies, treatments, or consults S.B.A.RTroy Report Given to: Dr. Marie STroyBTroyANaveen Repor Time: 16:21 Attestation Statement - Attestation Attestation: I examined this patient and my medical decision-making was reviewed with the Resident Physician. I agree with the documented findings, disposition and treatment plan as described except to the extent set forth below. Chronic diarrhea, electrolyte disturbances. We will replace electrolytes, soft non- peritoneal abdominal examination at time of admission. Patient will be admitted for elective replacement. Antibiotics were started for possible pneumonia. Will de-escalate once clinical symptoms improved. No need for oxygen at this time.
[2018-02-14] MEDS ORDERED: Naloxone 0.4 MG/ML INJ IVP PRN (17:04)
--- NOTE | 2018-02-14 17:16 | Internal Med History&Physical ---
<Cortney Kraft Zena - Last Filed: 02/14/18 17:53> Date of Encounter: 02/14/18 Time of Encounter: 17:13 Internal Medicine - H&P: HPI Chief complaint: Abnormal labs Admitted From: Home Plans for Post Hospital Care: Home History of present illness: Mr. Mujica is a 58 year old male with history of non small cell lung ca, hx of alcohol abuse, and anemia. The patient with recent history of diarrhea for past several weeks, which the patient states has been tested for c-dif and was negative. Apparently the patient was hypokalemic on recent outpatient blood work and he was asked to come into the ED for evaluation. The patient was found to have a k of 2.7 and was supplemented orally and parenterally. The patient indicated that he also had sob and cp yesterday. The patient denied any current sob, cough, congestion or fever. The wbc is 19.9. CP was likely related to his suspected PNA or the lung CA. The patient only noticed the pain with breathing. Will repeat serum k at 1800 and in am. Past Med Surg Social Fam HX - Past Medical History Medical history: cancer, COPD, hypertension, other Additional medical history: raynaud's, chronic neck pain, lung cancer Psychiatric history: anxiety, depression - Past Surgical History Surgical History: cholecystectomy, orthopedic, other, other Additional surgical history: right ankle surgery - Social History Smoking Status: Former smoker Smokeless Tobacco Status: No Alcohol use: none Drug use: none - Family History Father Hx Family Cancer: Yes (skin cancer) Hx Family Endocrine Disorder: Yes (diabetic) Internal Medicine - H&P: Meds ALPRAZolam [Xanax 1 MG Tablet] 1 mg PO QID 08/17/16 [History] Amlodipine Besylate 10 mg PO DAILY 08/17/16 [History] Aspirin 81 mg PO DAILY 08/17/16 [History] Citalopram Hydrobromide [Celexa] 40 mg PO DAILY 08/17/16 [History] Gabapentin [Neurontin] 600 mg PO HS 08/17/16 [History] OLANZapine [Zyprexa] 30 mg PO HS 08/17/16 [History] Oxycodone HCl/Acetaminophen [Percocet 10-325 mg Tablet] 1 tab PO TID PRN [History] Omeprazole [PriLOSEC] 40 mg PO DAILY #30 capsule. 08/29/17 [Rx] Loperamide [Imodium] 2 mg PO PRN PRN #90 capsule 12/28/17 [Rx] DiphenhydraMINE [Benadryl] 25 mg PO Q8HR PRN #90 capsule 01/23/18 [Rx] MethylPREDNISolone [Medrol] 32 mg PO DAILY #14 tablet 02/14/18 [Rx] Oxybutynin Chloride [Ditropan Xl] 10 mg PO HS 02/14/18 [History] Trazodone HCl 200 mg PO HS PRN 02/14/18 [History] metroNIDAZOLE [Flagyl] 500 mg PO TID #30 tablet 02/14/18 [Rx] 3 Allergy/AdvReac Type Severity Reaction Status Date / Time No Known Allergies Allergy Verified 02/14/18 13:12 All Systems PM: A 10-system review of systems was performed and is negative for pertinent findings except as documented above in the HPI. - Constitutional Constitutional: no chills, no fever(s), no night sweats - EENT Eyes: no change in vision, no discharge, no pain, no photophobia Ears: no ear discharge, no ear pain, no tinnitus Nose, mouth and throat: no dysphagia, no nasal discharge, no neck pain, no sore throat - Cardiovascular Cardiovascular ROS IM: chest pain (Resolved from yesterday), no diaphoresis, no dyspnea, no lightheadedness, no palpitations, no syncope - Respiratory Respiratory: dyspnea (Resolved since yesterday), no cough, no wheezing, no chest congestion, no excessive phlegm production - Gastrointestinal Gastrointestinal: no abdominal pain, no diarrhea, no hematemesis, no hematochezia, no melena, no nausea, no vomiting - Musculoskeletal Musculoskeletal ROS IM: no numbness, no tingling - Integumentary Integumentary IM: no rash, no unusual bruising - Neurological Neurological ROS: no confusion, no convulsions, no focal weakness, no numbness, no tingling, no tremor(s) - Hematologic/Lymphatic Hematologic/Lymphatic: no easy bruising - Constitutional Vitals: Temp Pulse Resp BP Pulse Ox 98.1 F 78 18 122/69 97 02/14/18 15:05 02/14/18 15:05 02/14/18 16:54 02/14/18 16:54 02/14/18 15:05 General appearance: Present: A&O X 3, answers questions appropriately - Head Head exam: Present: atraumatic, normocephalic - Eye Eye exam: Present: PERRL, conjuntiva pink, sclera anicteric Pupils: Present: PERRL - Neck Neck exam general surgery: Present: supple, trachea midline. Absent: lymphadenopathy - Respiratory Respiratory exam: Present: CTAB. Absent: accessory muscle use, rales, rhonchi, wheezes - Cardiovascular Cardiovascular exam: Present: RRR, +S1, +S2. Absent: diastolic murmur, gallop, rubs, systolic murmur - GI/Abdominal GI/Abdominal exam: Present: normal bowel sounds, soft, no peritoneal signs. Absent: distended, tenderness - Extremities Exam Extremities exam: Present: warm, radial pulses palpable and symmetrical. Absent : calf tenderness, cyanotic, pedal edema - Neurological Exam Neurological exam: Present: CN II-XII intact, oriented X3, no focal deficits. Absent: pronater drift, facial droop, speech deficit - Skin Skin exam: Present: dry, intact Internal Med - H&P Results - Labs CBC & Chem 7: 02/14/18 13:22 02/14/18 13:22 - Assessment and plan (1) Hypokalemia Current Visit: Yes Status: Acute Assessment and plan: Cardiac monitoring Repeat serum k @1800 and in am (2) Pneumonia Current Visit: Yes Status: Suspected Assessment and plan: Suspected PNA, was stsretd on vancomycin and popercillin im th eED Patient denied admission to hospital in past 90 days. Will start azithromycin and rocephin for suspected CAP. Oxygen prn to keep sats gt 94% Monitor daily labs Qualifiers: Pneumonia type: due to unspecified organism Laterality: right Lung location: unspecified part of lung Qualified Code(s): J18.9 - Pneumonia, unspecified organism (3) Lung cancer Current Visit: Yes Status: Acute Assessment and plan: Patient has right lung mass Qualifiers: Laterality: unspecified laterality Lung location: unspecified part of lung Qualified Code(s): C34.90 - Malignant neoplasm of unspecified part of unspecified bronchus or lung (4) Chest pain Current Visit: No Status: Acute Assessment and plan: Likely related to the patient lung CA or suspected PNA. Cardiac serial troponin Oxyggen prn Cardiac monitoring Qualifiers: Chest pain type: chest pain on breathing Qualified Code(s): R07.1 - Chest pain on breathing; R07.81 - Pleurodynia - Time Spent With Patient Total time spent is greater than 50% in coordination of care (as documented) at patient's floor/unit and/or counseling patient: less than 15 minutes <Jose De Jesus Marie - Last Filed: 02/15/18 07:21> Date of Encounter: 02/15/18 Internal Medicine - H&P: HPI History of present illness: Mr. Mujica is a 58 year old male All Systems PM: A 10-system review of systems was performed and is negative for pertinent findings except as documented above in the HPI. - Constitutional Vitals: Temp Pulse Resp BP Pulse Ox 98.9 F 84 15 106/62 92 02/15/18 07:05 02/15/18 07:05 02/15/18 07:05 02/15/18 07:05 02/15/18 07:05 Internal Med - H&P Results - Labs CBC & Chem 7: 02/15/18 00:24 02/15/18 00:24 Labs: Short CBC 02/15/18 Range/Units 00:24 WBC 13.8 H (4.3-11.1) K/mcL Hgb 8.7 L D (12.9-16.9) g/dL Hct 27.8 L (37.5-50.1) % Plt Count 273 (140-400) K/mcL Neutrophils # 12.4 H (1.6-8.9) K/mcL BMP 02/14/18 02/15/18 19:29 00:24 Sodium 135 L Potassium 3.0 L 3.1 L Chloride 107 Carbon Dioxide 29 BUN 10 Creatinine 0.77 Glucose 127 H Calcium 8.5 L Cardiac Enzymes 02/14/18 02/15/18 Range/Units 19:29 00:24 Troponin I < 0.03 < 0.03 (< 0.04) ng/mL - Attending Attestation I have seen and examined the patient with Cortney Kraft and agree with his/her assessment and plan. 58-year-old male with history of non-small cell lung CA on nivolumab presented with chronic diarrhea and hypokalemia. Afebrile and hemolymph is stable. No EKG changes associated with hypokalemia and was started on IV and oral supplements. Chest x-ray was concerning for right-sided pneumonia with rhonchi on exam and was restarted on abx since he was also complaining of R sided chest pain. Jose De Jesus Marie MD - Time Spent With Patient Total time spent is greater than 50% in coordination of care (as documented) at patient's floor/unit and/or counseling patient:
[2018-02-14] MEDS: cefTRIAXone 2,000 MG in Water for inj. (sterile) 20 ML 20 ML IVP SCH (20:58)
[2018-02-14] MEDS: traZODone 50 MG TABLET PO PRN (20:59)
[2018-02-14] MEDS: metroNIDAZOLE 500 MG TABLET PO SCH (21:00)
[2018-02-14] MEDS: OLANZapine 10 MG TAB.RAPDIS PO SCH (21:00)
[2018-02-14] MEDS: Gabapentin 300 MG CAPSULE PO SCH (21:00)
[2018-02-14] MEDS: ALPRAZolam 1 MG TABLET PO PRN (22:02)
--- NOTE | 2018-02-14 22:27 | Electrocardiograph Report ---
[facility] Test Date: 2018-02-14 Pat Name: Dario Mujica Department: [id number] Room: 3B36 Gender: M [employer] Installer: : 1960 Requested By: Prasad Glass Order Number: [id number] Reading MD: William Rogers Measurements Intervals [place] Rate: 95 P: 54 CO: 130 QRS: 42 QRSD: 94 T: 92 QT: 414 QTc: 466 Interpretive Statements SINUS RHYTHM WITH OCCASIONAL VENTRICULAR PREMATURE COMPLEXES WITH FREQUENT SUPRAVENTRICULAR PREMATURE COMPLEXES Electronically Signed On 02-14-2018 22:25:45 EDT by William Rogers
[2018-02-15 00:42] LABS: Basophils % 0.1 %; Hematocrit 27.8 % (37.5-50.1); Hemoglobin 8.7 g/dL (12.9-16.9); Immature Granulocytes % 0.7 % (0-4); Lymphocytes # 0.6 K/mcL (0.6-4.6); Lymphocytes % 4.2 %; Mean Corpuscular HGB Conc 31.3 g/dL (31.6-35.5); Mean Corpuscular Hemoglobin 25.5 pg (28.0-33.3); Mean Corpuscular Volume 81.5 fL (83.0-100.0); Mean Platelet Volume 9.6 fL (9.4-12.4); Monocytes # 0.7 K/mcL (0.0-1.3); Monocytes % 5.1 %; Neutrophils # 12.4 K/mcL (1.6-8.9); Platelet Count 273 K/mcL (140-400); Red Blood Count 3.41 M/mcL (4.19-5.50); Segmented Neutrophils % 89.9 %
[2018-02-15 00:53] LABS: BUN/Creatinine Ratio 13 (6-26); Blood Urea Nitrogen 10 mg/dL (6-20); Calcium 8.5 mg/dL (8.6-10.3); Carbon Dioxide 29 mEq/L (23-29); Chloride 107 mEq/L (98-107); Chol/HDL Ratio 2.8 (0-4.9); Cholesterol 107 mg/dL (< 200); Glucose 127 mg/dL (70-105); HDL Cholesterol 38 mg/dL (40-59); LDL Cholesterol,Calculated 55 mg/dL (0-99); Osmolality,Calculated 281 (280-300); Potassium 3.1 mEq/L (3.5-5.1); Sodium 135 mEq/L (136-145); Triglycerides 70 mg/dL (< 150); eGFR For Non-African Americans > 60 (> 60)
[2018-02-15] MEDS: cefTRIAXone 2,000 MG in Water for inj. (sterile) 20 ML 20 ML IVP SCH ×2 (08:15→20:21)
[2018-02-15] MEDS: metroNIDAZOLE 500 MG TABLET PO SCH ×3 (08:17→20:19)
[2018-02-15] MEDS: Aspirin 81 MG TAB.CHEW PO SCH (08:18)
[2018-02-15] MEDS: Azithromycin 500 MG in D5% in Water 250 ML IVPB SCH (08:25)
[2018-02-15] MEDS: ALPRAZolam 1 MG TABLET PO PRN ×2 (08:46→15:13)
[2018-02-15] MEDS: *HR* OxyCODONE/APAP 10/325 TABLET PO PRN ×2 (08:46→15:12)
[2018-02-15] MEDS: amLODIPine 5 MG TABLET PO SCH (10:34)
[2018-02-15] MEDS: methylPREDNISolone 4 MG TABLET PO SCH (15:13)
[2018-02-15] MEDS ORDERED: Potassium Chloride 40 MEQ, Lidocaine 1% 2 ML in D5% in Water 500 ML IVPB ONE (15:41)
--- NOTE | 2018-02-15 15:45 | Internal Med Progress Note ---
Date of Encounter: 02/15/18 Time of Encounter: 15:43 - Assessment and plan (1) Chronic diarrhea Current Visit: Yes Status: Acute Assessment and plan: 58-year-old male with past medical history lung cancer, recently receiving immunotherapy, presented with 3 months of diarrhea. Patient reported diarrhea started after he received immunotherapy at the cancer center. He describes the stool was brownish, watery, and nonbloody. Test for C. difficile is negative. he also has associated hypokalemia. - Chronic diarrhea, differential diagnoses including accredited legal secretary, osmatic, all invasive diarrhea. According to the patient description, likely secretory diarrhea. We will check stool GI panel. - Continue IV fluid, replace potassium. - Consult GI if no improvement of symptoms. (2) Hypokalemia Current Visit: Yes Status: Acute Assessment and plan: Placed, repeat BMP in the morning. (3) Pneumonia Current Visit: Yes Status: Suspected Assessment and plan: Pneumonia was suspected, continue antibiotics. Pending blood culture and sputum culture. Qualifiers: Pneumonia type: due to unspecified organism Laterality: right Lung location: unspecified part of lung Qualified Code(s): J18.9 - Pneumonia, unspecified organism (4) Lung cancer Current Visit: No Status: Chronic Assessment and plan: Short regular regularly follow up with the cancer Center Qualifiers: Laterality: unspecified laterality Lung location: unspecified part of lung Qualified Code(s): C34.90 - Malignant neoplasm of unspecified part of unspecified bronchus or lung (5) Chest pain Current Visit: Yes Status: Acute Assessment and plan: She reported one episode chest pain, EKG negative for ST-T change, troponin negative. Qualifiers: Chest pain type: chest pain on breathing Qualified Code(s): R07.1 - Chest pain on breathing; R07.81 - Pleurodynia - Time Spent With Patient Total time spent is greater than 50% in coordination of care (as documented) at patient's floor/unit and/or counseling patient: Greater than 35 minutes - Subjective Interval history: Pt seen and examined in the room. He reported chronic diarrhea for three months since he received immunotherapy for lung cancer. He denies abdominal pain, no N/ V. No fever, chills, or night sweats. - Constitutional Vitals: Temp Pulse Resp BP Pulse Ox 98.0 F 71 15 100/62 94 02/15/18 11:49 02/15/18 11:49 02/15/18 11:49 02/15/18 11:49 02/15/18 11:49 General appearance: Present: A&O X 3, answers questions appropriately Exam: PHYSICAL EXAMINATION: GENERAL APPEARANCE: The patient is alert, oriented and in no acute distress. HEENT: Head is normocephalic. The sinuses are nontender. Pupils are equal and reactive. The nares are patent. Oropharynx clear without lesions. NECK: Supple without lymphadenopathy. HEART: Regular rate and rhythm. LUNGS: No crackles or wheezes are heard. ABDOMEN: Soft, nontender, nondistended with good bowel sounds heard. Inguinal area is normal. EXTREMITIES: Without cyanosis, clubbing or edema. NEUROLOGICAL: Gross nonfocal. SKIN: Warm and dry without any rash. Internal Medicine: Result - Labs CBC & Chem 7: 02/15/18 00:24 02/15/18 00:24 Labs: Short CBC 02/15/18 Range/Units 00:24 WBC 13.8 H (4.3-11.1) K/mcL Hgb 8.7 L D (12.9-16.9) g/dL Hct 27.8 L (37.5-50.1) % Plt Count 273 (140-400) K/mcL Neutrophils # 12.4 H (1.6-8.9) K/mcL BMP 02/14/18 02/15/18 19:29 00:24 Sodium 135 L Potassium 3.0 L 3.1 L Chloride 107 Carbon Dioxide 29 BUN 10 Creatinine 0.77 Glucose 127 H Calcium 8.5 L Cardiac Enzymes 02/14/18 02/15/18 02/15/18 Range/Units 19:29 00:24 07:20 Troponin I < 0.03 < 0.03 < 0.03 (< 0.04) ng/mL Consult Discharge Plan - Plan Referrals: Marcelo Thomas MD [Primary Care Provider] - 03/03/18 2:45 pm
[2018-02-15 18:08] LABS: Adenovirus F 40/41 PCR Not detected (Not detect); Astrovirus PCR Not detected (Not detect); C.difficile Toxin A/B by PCR Not detected (Not detect); Campylobacter by PCR Not detected (Not detect); Cryptosporidium by PCR Not detected (Not detect); Cyclospora cayetanensis PCR Not detected (Not detect); E. coli O157 by PCR Not detected (Not detect); Entamoeba histolytica PCR Not detected (Not detect); Enteroaggregative E.coli(EAEC) Not detected (Not detect); Enteropathogenic E.coli(EPEC) Not detected (Not detect); Enterotoxigenic E.coli (ETEC) Not detected (Not detect); Giardia lamblia PCR Not detected (Not detect); Norovirus GI/GII PCR Not detected (Not detect); Plesiomonas shigelloides PCR Not detected (Not detect); Rotavirus A PCR Not detected (Not detect); Salmonella PCR Not detected (Not detect); Sapovirus PCR Not detected (Not detect); Shig/EnteroinvasiveE coli EIEC Not detected (Not detect); Shigalike tox-prod E coli STEC Not detected (Not detect); Vibrio PCR Not detected (Not detect); Vibrio cholerae PCR Not detected (Not detect); Yersinia enterocolitica PCR Not detected (Not detect)
[2018-02-15] MEDS: OLANZapine 10 MG TAB.RAPDIS PO SCH (20:19)
[2018-02-15] MEDS: Gabapentin 300 MG CAPSULE PO SCH (20:19)
[2018-02-15] MEDS: traZODone 50 MG TABLET PO PRN (20:20)
[2018-02-16 05:03] LABS: Basophils % 0.1 %; Hematocrit 30.8 % (37.5-50.1); Hemoglobin 9.3 g/dL (12.9-16.9); Immature Granulocytes % 0.6 % (0-4); Lymphocytes # 0.3 K/mcL (0.6-4.6); Mean Corpuscular HGB Conc 30.2 g/dL (31.6-35.5); Mean Corpuscular Hemoglobin 25.1 pg (28.0-33.3); Mean Platelet Volume 9.9 fL (9.4-12.4); Monocytes # 0.3 K/mcL (0.0-1.3); Monocytes % 3.1 %; Neutrophils # 7.6 K/mcL (1.6-8.9); Platelet Count 299 K/mcL (140-400); Red Blood Count 3.71 M/mcL (4.19-5.50); Red Cell Distribution Width 17.6 % (11.5-14.5); Segmented Neutrophils % 92.2 %
[2018-02-16 05:23] LABS: BUN/Creatinine Ratio 8 (6-26); Blood Urea Nitrogen 4 mg/dL (6-20); Calcium 8.5 mg/dL (8.6-10.3); Carbon Dioxide 24 mEq/L (23-29); Chloride 106 mEq/L (98-107); Glucose 134 mg/dL (70-105); Osmolality,Calculated 291 (280-300); Potassium 3.8 mEq/L (3.5-5.1); Sodium 141 mEq/L (136-145); eGFR For Non-African Americans > 60 (> 60)
[2018-02-16 07:00] VITALS: BP 101/68
[2018-02-16] MEDS: ALPRAZolam 1 MG TABLET PO PRN (09:00)
[2018-02-16] MEDS: methylPREDNISolone 4 MG TABLET PO SCH (09:00)
[2018-02-16] MEDS: *HR* OxyCODONE/APAP 10/325 TABLET PO PRN (09:00)
[2018-02-16] MEDS: amLODIPine 5 MG TABLET PO SCH (09:01)
[2018-02-16] MEDS: Aspirin 81 MG TAB.CHEW PO SCH (09:01)
[2018-02-16] MEDS: metroNIDAZOLE 500 MG TABLET PO SCH (09:01)
[2018-02-16] MEDS: Azithromycin 500 MG in D5% in Water 250 ML IVPB SCH (09:11)
--- NOTE | 2018-02-16 10:04 | Discharge Summary ---
- NOTES TO OUTPATIENT PROVIDER Notes to Outpatient Provider: f/u with PCP within aweek. f/u with oncology as scheduled. Date of Encounter: 02/16/18 Time of Encounter: 10:01 - Discharge Diagnosis (1) Chronic diarrhea Priority: Primary Status: Acute (2) Hypokalemia Priority: Primary Status: Resolved (3) Pneumonia Priority: Primary Status: Suspected Qualifiers: Pneumonia type: due to unspecified organism Laterality: right Lung location: unspecified part of lung Qualified Code(s): J18.9 - Pneumonia, unspecified organism (4) Lung cancer Priority: Secondary Status: Chronic Qualifiers: Laterality: unspecified laterality Lung location: unspecified part of lung Qualified Code(s): C34.90 - Malignant neoplasm of unspecified part of unspecified bronchus or lung (5) Chest pain Priority: Primary Status: Resolved Qualifiers: Chest pain type: chest pain on breathing Qualified Code(s): R07.1 - Chest pain on breathing; R07.81 - Pleurodynia Hospital course: Mr. Mujica is a 58 year old male with history of non small cell lung ca, hx of alcohol abuse, and anemia. The patient with recent history of diarrhea for past several months, which the patient states has been tested for c-dif and was negative. Apparently the patient was hypokalemic on recent outpatient blood work and he was asked to come into the ED for evaluation. The patient was found to have a k of 2.7 and was supplemented orally and parenterally. The patient indicated that he also had sob and cp. CXR showed possible pneumonia and he was started on IV abx. GI panel was normal. Pt diarrhea is secretory by nature, which is most likely due to immunotherapy that pt recently received. On the discharge day, pt is afebrile, VSS, Labs showed normal K and WBC. He will be discharged home with prescribed abx. He was instructed to f/u with PCP and oncology as scheduled. Discharge discussed with: patient Time spent discussing smoking cessation with patient: more than 10 minutes - Time Spent with Patient Total time spent providing and/or coordinating discharge services: Greater than 30 minutes - Discharge Medications Prescriptions: Amoxicillin/Clavulanate [Augmentin] 875 mg PO BIDWM #14 tablet Home Medications: ALPRAZolam [Xanax 1 MG Tablet] 1 mg PO QID 08/17/16 [History] Amlodipine Besylate 10 mg PO DAILY 08/17/16 [History] Aspirin 81 mg PO DAILY 08/17/16 [History] Citalopram Hydrobromide [Celexa] 40 mg PO DAILY 08/17/16 [History] Gabapentin [Neurontin] 600 mg PO HS 08/17/16 [History] OLANZapine [Zyprexa] 30 mg PO HS 08/17/16 [History] Oxycodone HCl/Acetaminophen [Percocet 10-325 mg Tablet] 1 tab PO TID PRN [History] Omeprazole [PriLOSEC] 40 mg PO DAILY #30 capsule. 08/29/17 [Rx] Loperamide [Imodium] 2 mg PO PRN PRN #90 capsule 12/28/17 [Rx] DiphenhydraMINE [Benadryl] 25 mg PO Q8HR PRN #90 capsule 01/23/18 [Rx] MethylPREDNISolone [Medrol] 32 mg PO DAILY #14 tablet 02/14/18 [Rx] Oxybutynin Chloride [Ditropan Xl] 10 mg PO HS 02/14/18 [History] Trazodone HCl 200 mg PO HS PRN 02/14/18 [History] metroNIDAZOLE [Flagyl] 500 mg PO TID #30 tablet 02/14/18 [Rx] Amoxicillin/Clavulanate [Augmentin] 875 mg PO BIDWM #14 tablet 02/16/18 [Rx] Allergies/Adverse Reactions: 3 Allergy/AdvReac Type Severity Reaction Status Date / Time No Known Allergies Allergy Verified 02/14/18 13:12 Date of admission: 02/14/18 16:30 Primary care physician: Marcelo Thomas MD Anticipated date of discharge: 02/16/18 - Constitutional Vitals: Temp Pulse Resp BP Pulse Ox 98.1 F 60 14 101/68 95 02/16/18 06:59 02/16/18 06:59 02/16/18 06:59 02/16/18 06:59 02/16/18 06:59 General appearance: Present: A&O X 3, answers questions appropriately Exam: PHYSICAL EXAMINATION: GENERAL APPEARANCE: The patient is alert, oriented and in no acute distress. HEENT: Head is normocephalic. The sinuses are nontender. Pupils are equal and reactive. The nares are patent. Oropharynx clear without lesions. NECK: Supple without lymphadenopathy. HEART: Regular rate and rhythm. LUNGS: No crackles or wheezes are heard. ABDOMEN: Soft, nontender, nondistended with good bowel sounds heard. Inguinal area is normal. EXTREMITIES: Without cyanosis, clubbing or edema. NEUROLOGICAL: Gross nonfocal. SKIN: Warm and dry without any rash. - Patient Status Disposition: Home, Self-Care Condition: Fair Functional capacity at discharge: independent ambulation Overall status at discharge: patient is back to baseline - Discharge Instructions Follow Up With: Marcelo Thomas MD [Primary Care Provider] - 03/03/18 2:45 pm - Diet and Activity Activity: increase activity as tolerated Diet: advance to your usual diet
== END 2018-02-16 12:01 | disposition home or self-care (01) ==
LOC: 3BNU 13:03 → EMEROO 13:03 → 3BNU 16:59
PROVIDERS: ADMIT Internal Medicine; ATTEND Internal Medicine